=== PATIENT | female | born 1965 ===

== ENCOUNTER 2020-03-10 11:31 | Emergency (ER) | payer MEDICARE, OTHER ==
[2020-03-10] MEDS ORDERED: diphenhydrAMINE 50 MG/ML 1 ML VIAL IVP STA (11:50)
[2020-03-10] MEDS ORDERED: SODIUM CHLORIDE 0.9% 1,000 ML IV STA (11:50)
[2020-03-10] MEDS ORDERED: METOCLOPRAMIDE 5 MG/ML 2 ML VIAL IVP STA (11:50)
--- NOTE | 2020-03-10 11:55 | ED ---
General Adult HPI - General Chief complaint: Headache Stated complaint: headache/bloody nose Time Seen by Provider: 03/10/20 11:39 Source: patient, RN notes reviewed Mode of arrival: wheelchair Limitations: no limitations - History of Present Illness Initial comments: Patient's a 54-year-old female presenting to the emergency room today with chief complaint of headaches that it been increased over the last 2 weeks. She does admit to history of migraines but states his headache does feel somewhat different. She does admit to a throbbing type sensation more in the back of the head. She states that does come and go. She is been using Aleve at home with some relief. Patient states that she's also had some nosebleeds. She does not that she is on oxygen 5 L due to history of alpha-1 antitrypsin, COPD. Patient describes the headache as throbbing. Currently rates it a 9/10. She does admit to some for sensitivity. Denies any other complaints or symptoms. Patient denies any recent fever, chills, shortness of breath, chest pain, back pain, abdominal pain, nausea or vomiting, visual changes, or any other complaints. - Related Data Home Medications Medication Instructions Recorded Confirmed Albuterol Inhaler [Ventolin Hfa 2 puff INHALATION RT-QID PRN 03/10/20 03/10/20 Inhaler] Albuterol Nebulized [Ventolin 2.5 mg INHALATION RT-BID 03/10/20 03/10/20 Nebulized] [id number] Inhibitor 4,518 mg IV TH 03/10/20 03/10/20 [Aralast [facility]] Fluticasone/Umeclidin/Vilanter 1 puff INHALATION RT-DAILY 03/10/20 03/10/20 [Trelegy Ellipta 200-62.5-25] Ibuprofen [Motrin Ib] 400 mg PO Q8H PRN 03/10/20 03/10/20 Allergies Allergy/AdvReac Type Severity Reaction Status Date / Time No Known Allergies Allergy Verified 03/10/20 12:19 Review of Systems ROS Statement: Those systems with pertinent positive or pertinent negative responses have been documented in the HPI. ROS Other: All systems not noted in ROS Statement are negative. Past Medical History Past Medical History: COPD Additional Past Medical History / Comment(s): genetic blood disorder. alpha 1 antitripsan- lung issues History of Any Multi-Drug Resistant Organisms: None Reported Past Surgical History: No Surgical Hx Reported Past Psychological History: No Psychological Hx Reported Smoking Status: Former smoker Past Alcohol Use History: Occasional Past Drug Use History: None Reported General Exam - General Exam Comments Initial Comments: General: The patient is awake and alert, in no distress, and does not appear acutely ill. Eye: Pupils are equal, round and reactive to light, extra-ocular movements are intact. There is normal conjunctiva bilaterally. No signs of icterus. Ears, nose, mouth and throat: There are moist mucous membranes and no oral lesions. Neck: The neck is supple. No JVD. Cardiovascular: There is a regular rate and rhythm. No murmur, rub or gallop is appreciated. Respiratory: Decreased lung sounds bilaterally. respirations are non-labored, breath sounds are equal. No wheezes, stridor, rales, or rhonchi. Musculoskeletal: Normal ROM, no tenderness. Strength 5/5. Sensation intact. Neurological: A&O x 3. CN II-XII intact, There are no obvious motor or sensory deficits. Coordination appears grossly intact. Speech is normal. Skin: Skin is warm and dry and no rashes or lesions are noted. Psychiatric: Cooperative, appropriate mood & affect, normal judgment. Limitations: no limitations Course Vital Signs 03/10/20 03/10/20 03/10/20 11:34 12:28 12:44 Temperature 98.4 F Pulse Rate 98 147 H 104 H Respiratory 25 H 40 H 30 H Rate Blood Pressure 156/93 177/87 155/65 O2 Sat by Pulse 97 100 100 Oximetry 03/10/20 03/10/20 03/10/20 12:59 13:18 13:27 Temperature Pulse Rate 99 89 87 Respiratory 30 H Rate Blood Pressure 160/76 O2 Sat by Pulse 97 Oximetry EKG Findings - EKG Comments: EKG Findings:: EKG performed: 1231. Shows sinus tachycardia 159 bpm. UT interval 136. QRS 80. QT/QTc 262/426. No acute ST changes. Repeat EK. Normal sinus rhythm at 99 bpm. UT interval 126. QRS 78. QT/QTc 314/402. No acute ST changes. Medical Decision Making - Medical Decision Making Was called back into the room by nursing staff. They did give medications of Reglan, Benadryl and patient began having a reaction. She states that she began feeling funny. Patient was very anxious and patient became tachycardiac EKG was obtained which shows sinus tachycardia. Patient heart rate began to improve immediately as she was starting to relax is starting to feel better. He was reviewed of the head which showed age-related changes with no acute abnormalities. Patient does not that headache is improved. Patient was also given breathing treatment as she does admit to history of COPD states that she was having some wheezing. She states that she feels better. Patient states she feels well to be discharged home. Was discussed about following up with her neurologist for these headaches. Advised return if any symptoms increase or worsen or fail concerns. She states understanding and is in agreement. Disposition Clinical Impression: Acute headache Disposition: HOME SELF-CARE Condition: Good Instructions (If sedation given, give patient instructions): Acute Headache (ED) Additional Instructions: Please use medication as discussed. Please follow-up with family doctor/neurologist in the next 2 days of symptoms have not improved. Please return to emergency room if the symptoms increase or worsen or for any other concerns. Is patient prescribed a controlled substance at d/c from ED?: No Referrals: Lydia Stevens MD [Primary Care Provider] - 1-2 days Time of Disposition: 13:35
--- NOTE | 2020-03-10 12:31 | CT ---
EXAMINATION TYPE: CT brain wo con DATE OF EXAM: 03/10/2020 COMPARISON: None HISTORY: Headache CT DLP: 1056.[address] of the brain was performed. The ventricles, basal cisterns and sulci overlying the cerebral convexities demonstrate mild enlargem ent. There is no evidence for intracranial hemorrhage or sulcal effacement. There is decreased attenuation about the periventricular white matter and deep white matter of both c erebral hemispheres, compatible with chronic small vessel ischemia. Differential diagnosis does inclu de demyelination. No mass effects are seen.No midline shift. Osseous calvarium is intact. If symptoms persist consider MRI. IMPRESSION: 1. Age related atrophic and chronic small vessel ischemic change without acute intracranial process s een at this time.
[2020-03-10] MEDS ORDERED: ONDANSETRON 4 MG/2 ML VIAL IVP STA (12:48)
[2020-03-10] MEDS ORDERED: IPRATROPIUM-ALBUTEROL 3 ML NEB INHALATION STA (13:04)
[2020-03-10 13:45] VITALS: RESP 28
[2020-03-10 14:34] VITALS: BP 122/64; PULSE 81; TEMP 98.2
== END 2020-03-10 14:00 | disposition home or self-care (01) ==
LOC: EC 11:31
DX: R51.9 Headache, unspecified (principal); R00.0 Tachycardia, unspecified; J44.9 Chronic obstructive pulmonary disease, unspecified; Z79.51 Long term (current) use of inhaled steroids; Z87.891 Personal history of nicotine dependence
CPT/HCPCS: 94640; 93005; 70450; 99284; 96374; 96375 ×2; 96361; J1200; J2765; J2405